=== PATIENT | female | born 1955 ===

== ENCOUNTER 2018-09-01 09:04 | Day surgery (SDC) | payer OTHER ==
[2018-09-01] VITALS (8 sets, daily range): BP systolic 111–129; BP diastolic 50–67
[~2018-09-01] VITALS: Ht 160 cm; Wt 70.3 kg
[2018-09-01] MEDS ORDERED: LEXAPRO20 MG ORAL (09:42)
[2018-09-01] MEDS ORDERED: OMEPRAZOLE40 M1 ORAL (09:42)
[2018-09-01] MEDS ORDERED: GAVISCON ES TA1 EACH PO (09:46)
[2018-09-01] MEDS ORDERED: LR 1000ml ONE (11:00)
[2018-09-01] MEDS ORDERED: Propofol 200mg/20ml IV ONE (11:00)
--- NOTE | 2018-09-01 11:08 | Short Stay Surgery H&P ---
History of Present Illness History of Present Illness Chief Complaint Rectal bleeding, diarrhea, constipation, anemia HPI Martha Oshea is a 63 year old female who was admitted on for Abdominal Pain/ rectal bleeding changes in BM. Patient History Allergies: Coded Allergies: No Known Allergies (Unverified , 09/01/18) PAST MEDICAL HISTORY: (1) Anemia Medication History Scheduled Escitalopram Oxalate* (Lexapro*), 20 MG ORAL DAILY, (Reported) Magnesium Carbonate/Al Hydrox (Gaviscon Es Tablet Chew), 1 EACH PO DAILY, ( Reported) Omeprazole (Omeprazole), 40 MG ORAL DAILY, (Reported) Review of Systems Cardiovascular: Reports: no symptoms Respiratory: Reports: no symptoms Skeletal: Reports: trauma Gastrointestinal: Reports: other Genitourinary: Reports: no symptoms Neurologic: Reports: no symptoms Endocrine: Reports: no symptoms Hematologic: Reports: no symptoms Physical Exam Vital Signs Last Vital Signs Date Time Temp Pulse Resp B/P (MAP) Pulse Ox O2 Delivery O2 Flow Rate FiO2 09/01/18 09:44 97.0 47 16 111/50 97 Room Air Skin: normal HENT: normal Heart: normal Lungs: normal Abdomen: abnormal Extremities: normal Genitourinary: normal Plan Plan of Care Total colonoscopy and possible biopsy Preop Interventions None. Summary of Findings See the reports Attestation Are the patient's medical conditions optimized for surgery? Attestation Response: yes Shane Weber MD Sep 01, 2018 11:08
--- NOTE | 2018-09-01 11:08 | Pre-Procedure Note/Attestation ---
Pre-Procedure Note/Attestation Complete Prior to Procedure Planned Procedure: left Procedure Narrative: Examination of the colon via endoscopy Indications for Procedure Pre-Operative Diagnosis: R/O hemorrhoids/colon CA/colitis Attestation I attest that I discussed the nature of the procedure; its benefits; risks and complications; and alternatives (and the risks and benefits of such alternatives ), prior to the procedure, with the patient (or the patient's legal entry level marketing representative). I attest that, if there was a reasonable possibility of needing a blood transfusion, the patient (or the patient's legal entry level marketing representative) was given the [facility] standardized written summary, pursuant to the Royce Cuca Blood Safety Act ([place] Health and Safety Code # 1645, as amended). I attest that I re-evaluated the patient just prior to the surgery and that there has been no change in the patient's H&P, except as documented below: Shane Weber MD Sep 01, 2018 11:08
--- NOTE | 2018-09-01 11:11 | Anethesia Preoperative Eval ---
Anesthesia Pre-op PMH/ROS General Date of Evaluation: Sep 01, 2018 Time of Evaluation: 11:09 Anesthesiologist: Germania Kaye CRNA ASA Score: ASA 2 Mallampati Score Class I : Soft palate, uvula, fauces, pillars visible Class II: Soft palate, uvula, fauces visible Class III: Soft palate, base of uvula visible Class IV: Only hard plate visible Mallampati Classification: Class II Surgeon: Tia Diagnosis: Rectal bleeding Surgical Procedure: Colonoscopy Anesthesia History: none Family History: no anesthesia problems Allergies: Coded Allergies: No Known Allergies (Unverified , 09/01/18) Medications: see eMAR Patient NPO?: Yes Past Medical History Cardiovascular: Denies: HTN, CAD, NE, valve dz, arrhythmia, other Pulmonary: Denies: asthma, COPD, MARIIA, other Gastrointestinal/Genitourinary: Reports: GERD; Denies: CRI, ESRD, other Neurologic/Psychiatric: Reports: depression/anxiety; Denies: dementia, CVA, TIA, other Endocrine: Denies: DM, hypothyroidism, steroids, other HEENT: Denies: cataract (L), cataract (R), glaucoma, [place] (L), [place] (R), other Hematology/Immune: Denies: anemia, DVT, bleeding disorder, other Musculoskeletal/Integumentary: Denies: OA, RA, DJD, DDD, edema, other PMH Narrative: as noted above PSxH Narrative: tonsillectomy, hysterectomy Anesthesia Pre-op Phys. Exam Physician Exam Last Vital Signs Date Time Temp Pulse Resp B/P (MAP) Pulse Ox O2 Delivery O2 Flow Rate FiO2 09/01/18 09:44 97.0 47 16 111/50 97 Room Air Constitutional: NAD Neurologic: CN 2-12 intact Cardiovascular: RRR Respiratory: CTA Gastrointestinal: S/NT/ND Airway Exam Mallampati Score: Class II MO: full Neck: FROM TMD: 3 FB ROM: full Teeth: intact Dentures: no upper, no lower Anesthesia Pre-op A/P Risk Assessment & Plan Assessment: ASA 2, ok to proceed Plan: MAC Status Change Before Surgery: No Pre-Antibiotics Given Within 1 Hr of Incision: Germania Bryant CRNA Sep 01, 2018 11:11
--- NOTE | 2018-09-01 11:40 | Endoscopy Procedure Note ---
Endoscopy Procedure Note General Indication for Procedure: Rectal bleeding, diarrhea,constipation and abdominal pains Procedures Performed: colonoscopy - Internal hemorrhoids and mild diverticulosis of the colon. Specimen: yes Pt Tolerated Procedure Well: Yes Estimated Blood Loss: none Anesthesia Anesthesiologist: Ms. Mikki DURAND Anesthesia: moderate sedation Medications Medication Given: see anesthesia record Inserted Devices Implant(s) used?: No Quality Quality of Bowel Preparation: Fair Did scope reach the cecum?: Yes Was there any complications?: No GI Core Measures 50 yrs or older w/o bx or poly: Yes 10yrs. F/U recommended: Yes If not recommended, why?: Med reason:<3 yrs.: System Reason:<3 yrs.: Last colonoscopy >= to 3yrs: Yes Shane Weber MD Sep 01, 2018 11:40
--- NOTE | 2018-09-01 11:41 | Discharge Instructions ---
Discharge Instructions Discharge Instructions Follow up with: Rhina will send the report to the referring MD For Congestive Heart Failure Reminder Report to your physician any weight gain of 5 pounds or more in one week. Shane Weber MD Sep 01, 2018 11:41
--- NOTE | 2018-09-01 11:45 | Immediate Post-Op Evaluation ---
Immediate Post-Op Evalulation Immediate Post-Op Evalulation Procedure: Colonoscopy with biopsies Date of Evaluation: Sep 01, 2018 Time of Evaluation: 11:44 IV Fluids: LR 400 ml Blood Pressure Systolic: 119 Blood Pressure Diastolic: 62 Pulse Rate: 53 Respiratory Rate: 22 O2 Sat by Pulse Oximetry: 100 Temperature (Fahrenheit): 98.0 Pain Score (1-10): 0 Nausea: No Vomiting: No Complications none Patient Status: awake, patent Hydration Status: adequate Given Within 1 Hr of Incision: Germania Bryant CRNA Sep 01, 2018 11:45
--- NOTE | 2018-09-01 11:51 | 48 Hour Post Anesthesia Eval ---
Post Anesthesia Evaluation Procedure: Colonoscopy with biopsies Date of Evaluation: Sep 01, 2018 Time of Evaluation: 11:51 Blood Pressure Systolic: 117 0: 63 Pulse Rate: 46 Respiratory Rate: 22 Temperature (Fahrenheit): 97.3 O2 Sat by Pulse Oximetry: 100 Airway: patent Nausea: No Vomiting: No Pain Intensity: 0 Hydration Status: adequate Cardiopulmonary Status: stable Mental Status/LOC: patient returned to baseline Follow-up Care/Observations: per GI Post-Anesthesia Complications: none Follow-up care needed: N/A Germania Kaye CRNA Sep 01, 2018 11:51
--- NOTE | 2018-09-01 19:15 | Operative Note - Dictated ---
DATE OF OPERATION: 09/01/2018 SURGEON: Shane Weber M.D. PROCEDURE: Total colonoscopy. PREOPERATIVE DIAGNOSES: Rectal bleeding, abdominal pain, diarrhea, and constipation. POSTOPERATIVE DIAGNOSES: 1. Internal hemorrhoids. 2. Mild diverticulosis of the colon. 3. High redundancy of the left colon, otherwise normal study. MEDICATION USED: Per Ms. Reddingy Mikki, NURSING TEACHER youth development professional. INSTRUMENT: GIF Olympus video colonoscope. DESCRIPTION OF PROCEDURE: The patient after arriving at the endoscopy unit, was told about risks and benefits of the procedure, which she accepted and signed informed consent. She was then put on the left lateral decubitus position. After adequate IV sedation, the scope was gently approached towards the anal area, which revealed evidence of hemorrhoidal tags and a retroflexion maneuver which was applied in the rectum revealed evidence of internal hemorrhoids, but they were not friable. At this time, the scope was passed through normal-looking rectum going through highly redundant left colon, which took significant amount of time to pass through, however, there was evidence of occasional diverticular lesions consistent with mild diverticulosis, but there was no strictures, tumors, polyps, or bleeding site, etc. Finally, the scope reached to the splenic flexure, transverse colon, right hepatic flexure and guided into the ascending colon all the way to the base of the cecum. All these areas, however, remained to be completely normal and no evidence of other pathology found. At this point, within 7 minutes the scope was gradually pulled out as the colon cleanup was fair as well. The patient tolerated the procedure well and left the endoscopy room in a good condition. Said Vargas Weber DR: JONG JOB#: [id number] CC:
--- NOTE | 2018-09-01 19:15 | Pre-op HX & Phy Repo 2 SIG ---
DATE OF ADMISSION: 09/01/2018 HISTORY OF PRESENT ILLNESS: The patient is a 63-year-old female, who is being seen prior to undergoing the procedure of colonoscopic examination for which she has been scheduled to receive for evaluation of gastrointestinal conditions, mostly rectal bleeding that she has been complaining of subsequent to her work injury. The patient actually has recently been seen in my office when I examined her and at this time also the examination is being done prior to her going to endoscopy room and receiving anesthesia, which is needed for her to be physically examined. The patient is telling me that she has been experiencing abdominal pain with intermittent diarrhea and constipation and occasional rectal bleeding. The cause of this condition is not well known at this point, though in the past, she had received upper and lower GI endoscopic examination by other physicians the report of which is not available to us at this point. She also complains of having symptoms of gastroesophageal reflux consistent with gastroesophageal reflux disease. She reported that she recently underwent an upper GI endoscopic examination by the private physician, who suggested that she did have gastroparesis, duodenitis, and gastritis, but there was no any abnormality in the esophagus. She denies having any difficulty swallowing, dysphagia, odynophagia, or any history of hematemesis or melena. She has been treated with multiple medications in the past including Nexium and Gaviscon for the problem of heartburn that she has had. She also reports to me that she cannot tolerate regular milk either. She has had examination by other physicians that they raised the question of possibility of underlying irritable bowel syndrome, IBS that she has suffered from. She also does have some complaint of anal pain. As I mentioned, she received some colonoscopic examination in the year 2008, the result of which is not available to us. At this time today, she complains of generalized abdominal pain and constipation and occasional rectal bleeding as I mentioned. PAST MEDICAL HISTORY: Basically nonsignificant, though she has had injuries at work that required medications given to her in terms of nonsteroidal anti-inflammatory agents. 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 As such, she has had orthopedic conditions that she has been taking care of in the past. Also, it is important to mention that the applicant does have history of anemia, which is none diagnosed and my suggestion when I examined her was the possibility of underlying congenital hemolytic anemia consistent with thalassemia, but it is not ____ that need further workup by private caregivers of her's. SURGICAL HISTORY: Hysterectomy. ALLERGIES: None significant. HABITS: She denies smoking cigarettes and does not drink alcohol and does not use illicit drugs. CURRENT MEDICATIONS: Nexium, Gaviscon, ibuprofen, and Lexapro. REVIEW OF SYSTEMS: CONSTITUTIONAL: Basically, history of present illness. She denies having any cardiac conditions such as chest pain or angina. RESPIRATORY: She also denies having any problem with breathing except occasional shortness of breath, but is not major. MUSCULOSKELETAL: She complains of pain over her shoulders and the lower back area. HEMATOLOGICAL: As I mentioned, she does have history of anemia of undiagnosed etiology yet. GENITOURINARY: None significant. PSYCHOLOGIC: The patient complains of excessive anxiety and depression. PHYSICAL EXAMINATION: GENERAL: At this time reveals alert and oriented, very pleasant female, does not seem to be in any acute distress. She looks well developed and nourished and answers the questions quite properly. VITAL SIGNS: All are stable. HEENT: Normocephalic. Pupils are equal in size and reactive to light and accommodation. No visible jaundice. Buccal cavity, tongue midline, well hydrated. No ulcers. NECK: Supple. No JVD, thyromegaly, or adenopathy. CHEST: Clear to auscultation and percussion. No rales or rhonchi. HEART: S1, S2 normal. Regular rhythm. No gallops or murmur. ABDOMEN: Soft. There is some areas of tenderness over the upper part of the abdomen and also areas of the left lower and right lower quadrant area of the abdomen, but there is no organomegaly or palpable mass. EXTREMITIES: Unremarkable. PRELIMINARY PREOPERATIVE IMPRESSION: 1. Abdominal pain of uncertain etiology, rule out irritable bowel syndrome, IBS with intermittent diarrhea and constipation consistent with IBS-M (mixed). 2. History of rectal bleeding of uncertain etiology, rule out hemorrhoids versus colitis, colon polyps, tumors, etc. 3. History of anemia, hypochromic microcytic nature, rule out congenital conditions such as thalassemia. 4. History of bodily injury, work related. 5. Anxiety and depression. RECOMMENDATIONS: At this time, the applicant seems to be stable to undergo the procedure of colonoscopy, for which she has been scheduled. She understands the risks and benefits and will sign the consent. Said Vargas Weber DR: ANASTACIO JOB#: [id number] CC:
== END 2018-09-01 12:45 | disposition home or self-care (01) ==
LOC: GAS 09:04
DX: K62.5 Hemorrhage of anus and rectum (principal); R10.9 Unspecified abdominal pain; K64.8 Other hemorrhoids; K57.90 Diverticulosis of intestine, part unspecified, without perforation or abscess without bleeding; Z90.710 Acquired absence of both cervix and uterus; F41.9 Anxiety disorder, unspecified; F32.9 Major depressive disorder, single episode, unspecified; Z79.899 Other long term (current) drug therapy
CPT/HCPCS: 45378; J2704; 94003; 94150